=== PATIENT | female | born 1960 | race Caucasian/White ===

== ENCOUNTER → 2017-03-03 | Outpatient (CLI) | payer OTHER ==
[~2017-03-03] MED LIST: FLEXERIL10 MG PO; FLONASE 50 MCG/16 GM NOSE; LEVOTHROID (SY50 MCG PO; PEPCID40 MG PO; PROAIR HFA8.5 GM PO; SUPER B COMPLE150 MG PO; TYLENOL EXTRA500 MG PO; VITAMIN D5000 UNIT PO
== END | disposition disaster alternative care site (69) ==
LOC: GBCOE 08:30
DX: Z12.31 Encounter for screening mammogram for malignant neoplasm of breast (principal); Z85.3 Personal history of malignant neoplasm of breast; Z90.11 Acquired absence of right breast and nipple
CPT/HCPCS: G0202

== ENCOUNTER → 2017-03-06 | Outpatient (CLI) | payer OTHER | END | disposition disaster alternative care site (69) | LOC: GRAD 12:27 | DX: R20.0 Anesthesia of skin (principal); M47.896 Other spondylosis, lumbar region; Z85.3 Personal history of malignant neoplasm of breast ==